=== PATIENT | female | born 1990 ===

== ENCOUNTER 2017-11-02 08:37 | Emergency (ER) | payer MEDICAID ==
[2017-11-02] MEDS ORDERED: Oxycodone/Acetaminophen 5/325 mg Tab PO STA (09:37)
[2017-11-02] MEDS ORDERED: Oxycodone/Acetaminophen 5/325 mg Tab ONE (09:47)
--- NOTE | 2017-11-02 09:53 | C.PDOC ---
History Of Present Illness 27 y/o female presents to the ER reporting of pain to the right 2nd lower molar which has been present for the past 3-4 days. Patient states that she took OTC medications without relief. Denies having headache, fever, chills. Time Seen by Provider: 11/02/17 09:10 Chief Complaint (Nursing): Dental Pain History Per: Patient History/Exam Limitations: no limitations Onset/Duration Of Symptoms: Days Current Symptoms Are (Timing): Still Present Severity: Moderate Past Medical History Reviewed: Historical Data, Nursing Documentation, Vital Signs Vital Signs: Last Vital Signs Temp 98.1 F 11/02/17 10:09 Pulse 83 11/02/17 10:09 Resp 20 11/02/17 10:09 BP 110/70 11/02/17 10:09 Pulse Ox 100 11/02/17 10:09 - Medical History PMH: Depression, HIV Denies: Diabetes, Hepatitis, HTN, Chronic Kidney Disease, Seizures, Sexually Transmitted Disease Surgical History: - [facility] GROUP PSYCHOTHERAPY (04/24/17) INDIVIDUAL PSYCHOTHERAPY, SUPPORTIVE (04/24/17) MEDICATION MANAGEMENT (04/24/17) Family History: States: No Known Family Hx - Social History Hx Alcohol Use: Yes Hx Substance Use: Yes (marijuana) Review Of Systems Except As Marked, All Systems Reviewed And Found Negative. Constitutional: Negative for: Fever, Chills ENT: Positive for: Mouth Pain Neurological: Negative for: Headache Physical Exam - Physical Exam Appears: Non-toxic, No Acute Distress Skin: Normal Color, Warm, Dry Head: Atraumatic, Normacephalic Eye(s): bilateral: Normal Inspection Nose: Normal Oral Mucosa: Moist, No Trismus Teeth: Caries (right lower 2nd molar), Other (crack in right lower 2nd molar) Throat: Normal, No Erythema, No Exudate Neck: Supple Chest: Symmetrical Cardiovascular: Rhythm Regular Respiratory: Normal Breath Sounds, No Rales, No Rhonchi, No Wheezing Gastrointestinal/Abdominal: Normal Exam, Soft, No Tenderness, No Guarding, No Rebound Extremity: Normal ROM Neurological/Psych: Oriented x3, Normal Speech ED Course And Treatment O2 Sat by Pulse Oximetry: 98 (RA) Pulse Ox Interpretation: Normal Medical Decision Making Medical Decision Making: Plan: --Amoxicillin PO --Percocet PO Disposition - Disposition Referrals: [facility] [Outside] Disposition: HOME/ ROUTINE Disposition Time: 10:00 Condition: GOOD Additional Instructions: Follow up with the dentist within 1-2 days without fail. return if worsened. Prescriptions: Acetaminophen/Codeine [Tylenol/Codeine 300 MG/30 MG] 1 tab PO Q8 PRN #15 tab PRN Reason: Pain, Severe (8-10) Amoxicillin [Amoxil 500 mg Cap] 500 mg PO TID #29 cap Instructions: Tooth Decay, Adult (DC) Forms: [employer] (Bermudian) - Clinical Impression Clinical Impression: Dental caries - PA / BENCH MANAGER / Resident Statement MD/DO has reviewed & agrees with the documentation as recorded. - Scribe Statement The provider has reviewed the documentation as recorded by the Fan Watson Provider Attestation All medical record entries made by the Sabrinaibefren were at my direction and personally dictated by me. I have reviewed the chart and agree that the record accurately reflects my personal performance of the history, physical exam, medical decision making, and the department course for this patient. I have also personally directed, reviewed, and agree with the discharge instructions and disposition.
[2017-11-02 10:11] VITALS: BP 110/70; PULSE 83; RESP 20; TEMP 98.1
[2017-11-03 18:37] VITALS: O2SAT 98
== END 2017-11-02 10:08 | disposition home or self-care (01) ==
LOC: C.ER 08:37
DX: K02.9 Dental caries, unspecified (principal)